=== PATIENT | female | born 1955 | race Caucasian/White ===

== ENCOUNTER 2019-06-03 16:43 | Emergency (ER) | payer OTHER ==
[~2019-06-03] VITALS: Ht 160 cm; Wt 65.3 kg
[2019-06-03 16:52] VITALS: Ht 160 cm; Wt 65.3 kg
[2019-06-03 19:20] VITALS: BP 135/78
== END 2019-06-03 19:14 | disposition home or self-care (01) ==
LOC: ED 16:43
DX: S53.104A Unspecified dislocation of right ulnohumeral joint, initial encounter (principal); Z88.2 Allergy status to sulfonamides; Z88.8 Allergy status to other drugs, medicaments and biological substances; W01.10XA Fall on same level from slipping, tripping and stumbling with subsequent striking against unspecified object, initial encounter; Y93.89 Activity, other specified; Y92.89 Other specified places as the place of occurrence of the external cause; Y99.8 Other external cause status
CPT/HCPCS: J2001; J3010